=== PATIENT | female | born 1960 | race African-American/Black ===

== ENCOUNTER 2024-01-24 02:57 | Emergency (ER) | payer MEDICAID ==
[~2024-01-24] VITALS: Ht 167.6 cm; Wt 66.0 kg
[~2024-01-24 02:57] MED LIST: ALBU90AE INH; HYDR-4009 MT
[2024-01-24 02:59] VITALS: TEMP 98.5; O2SAT 99
[2024-01-24 07:59] LABS: BASOPHILS % 0.7 % (0.0-2.0); EOSINOPHILS % 2.2 % (0.0-5.0); HEMATOCRIT. 39.7 % (36.0-48.0); LYMPHOCYTES % 36.3 % (20.0-50.0); MEAN CORPUSCULAR HEMOGLOBIN 27.1 pg (28.0-32.0); MEAN CORPUSCULAR HGB CONC 32.8 g/dL (31.0-37.0); MEAN CORPUSCULAR VOLUME 82.6 fL (81.0-99.0); MEAN PLATELET VOLUME 8.1 fl (7.4-10.4); MONOCYTES % 6.5 % (2.0-8.0); NEUTROPHILS % 54.3 % (40.0-76.0); PLATELET 183 x1000/uL (130-400); RED BLOOD CELL COUNT 4.81 mill/uL (4.2-5.4); RED CELL DISTRIBUTION WIDTH 14.2 % (11.6-14.6); WHITE BLOOD COUNT 5.9 x1000/uL (4.5-11.0)
[2024-01-24 08:21] LABS: ALANINE AMINOTRANSFERASE 8 IU/L (10-49); ALBUMIN 3.9 g/dL (3.2-4.8); ASPARTATE AMINOTRANSFERASE 10 IU/L (<34); BILIRUBIN TOTAL 0.5 mg/dL (0.1-1.0); CALCIUM 8.7 mg/dL (8.7-10.4); CARBON DIOXIDE 29 mEq/L (21-32); CHLORIDE 102 mEq/L (98-107); CREATININE 0.6 mg/dL (0.6-1.0); GLUCOSE 260 mg/dL (70-105); POTASSIUM 3.7 mEq/L (3.5-5.1); PROTEIN TOTAL 6.6 g/dL (6.0-8.3); SODIUM 133 mEq/L (136-145); TROPONIN I HIGH SENSITIVITY 4 ng/L (3.0-34); UREA NITROGEN BLOOD 11 mg/dL (9-23)
[2024-01-24 11:57] VITALS: BP 131/72; PULSE 77; RESP 14
[2024-01-24] MEDS ORDERED: DEXT30SU17 MT (13:47)
[2024-01-24] MEDS ORDERED: IBUP-1523 MT (13:47)
[2024-01-24] MEDS ORDERED: TOPUD MT (13:47)
== END 2024-01-24 14:18 | disposition home or self-care (01) ==
LOC: ER 03:11
DX: B34.9 Viral infection, unspecified (principal); E11.9 Type 2 diabetes mellitus without complications; J45.909 Unspecified asthma, uncomplicated; Z20.822 Contact with and (suspected) exposure to COVID-19
CPT/HCPCS: 36415; 80053; 84484; 85025; 87426; 87804; 93005; 99284

== ENCOUNTER 2025-04-13 16:34 | Emergency (ER) | payer MEDICAID ==
[~2025-04-13] VITALS: Ht 167.6 cm; Wt 81.0 kg
[~2025-04-13 16:34] MED LIST changes: +GABA-1180 PO; +INSU100I28 SQ; +LISI20TA31 PO; +TOPUD MT
[2025-04-13 16:36] VITALS: O2SAT 98
[2025-04-13] MEDS: NA PHOS,M-B/NA PHOS,DI-BA ENEMA 118ML PR ONE (17:50)
[2025-04-13] MEDS ORDERED: NA P230E RC (18:45)
[2025-04-13 19:02] VITALS: BP 126/66; PULSE 70; RESP 14; TEMP 36.9; O2SAT 98
== END 2025-04-13 19:03 | disposition home or self-care (01) ==
LOC: ER 16:34
DX: K59.00 Constipation, unspecified (principal); E11.9 Type 2 diabetes mellitus without complications; J45.909 Unspecified asthma, uncomplicated; M19.90 Unspecified osteoarthritis, unspecified site; Z79.4 Long term (current) use of insulin; Z79.899 Other long term (current) drug therapy
CPT/HCPCS: 99284

== ENCOUNTER 2025-09-19 23:58 | Inpatient (IN) | payer MEDICAID ==
[~2025-09-19] VITALS: Ht 170.2 cm; Wt 82.1 kg
[~2025-09-19 23:58] MED LIST changes: +NA P230E RC
[2025-09-20] VITALS: O2SAT 99
[2025-09-20] MEDS: NITROGLYCERIN 0.4MG TABLET SL SL PRN (00:33)
[2025-09-20] MEDS: ASPIRIN 325MG TABLET PO ONE (00:33)
[2025-09-20 00:34] LABS: BASOPHILS % 1.0 % (0.0-2.0); EOSINOPHILS % 1.7 % (0.0-5.0); HEMATOCRIT. 39.5 % (36.0-48.0); HEMOGLOBIN. 12.8 g/dL (12.0-16.0); LYMPHOCYTES % 37.9 % (20.0-50.0); MEAN PLATELET VOLUME 8.1 fl (7.4-10.4); MONOCYTES % 5.9 % (2.0-8.0); NEUTROPHILS % 53.5 % (40.0-76.0); PLATELET 177 x1000/uL (130-400); RED BLOOD CELL COUNT 4.76 mill/uL (4.2-5.4); RED CELL DISTRIBUTION WIDTH 14.2 % (11.6-14.6)
[2025-09-20 00:49] LABS: CREATININE 0.8 mg/dL (0.6-1.0); ETHANOL BLOOD < 10 mg/dL (<10); INR 0.9; UREA NITROGEN BLOOD 11 mg/dL (9-23)
[2025-09-20 00:50] LABS: TROPONIN I HIGH SENSITIVITY 5 ng/L (3.0-34)
[2025-09-20 00:51] LABS: ASPARTATE AMINOTRANSFERASE 13 IU/L (<34); BILIRUBIN DIRECT < 0.1 mg/dL (<=3.0); BILIRUBIN TOTAL 0.3 mg/dL (0.1-1.0); PROTEIN TOTAL 6.2 g/dL (6.0-8.3)
[2025-09-20] MEDS: HYDRALAZINE 20MG/ML VIAL IV NR (01:44)
[2025-09-20 03:18] LABS: *AMPHETAMINES SCREEN URINE NEGATIVE (NEGATIVE); *BARBITURATES SCREEN URINE NEGATIVE (NEGATIVE); *BENZODIAZEPINES SCREEN URINE NEGATIVE (NEGATIVE); *COCAINE SCREEN URINE NEGATIVE (NEGATIVE); CANNABINOID URINE SCREEN NEGATIVE (NEGATIVE); ECSTASY MDMA SCREEN URINE NEGATIVE (NEGATIVE); METHADONE URINE SCREEN NEGATIVE (NEGATIVE); OPIATES URINE SCREEN PRESUMPTIVE POSITIVE (NEGATIVE); PHENCYCLIDINE URINE SCREEN NEGATIVE (NEGATIVE)
[2025-09-20 05:31] VITALS: BP 124/68; PULSE 66; RESP 20; TEMP 36.14
[2025-09-20] MEDS ORDERED: DEXTROSE 50% WATER 50ML SYRINGE IV PRN (07:45)
[2025-09-20 08:00] VITALS: BP 123/62; PULSE 67; RESP 20; TEMP 36.2; O2SAT 98
[2025-09-20] MEDS ORDERED: NALOXONE HCL 0.4MG/ML VIAL IV PRN (08:00)
[2025-09-20] MEDS: ASPIRIN 81MG TABLET PO SCH (09:19)
[2025-09-20] MEDS: METOPROLOL TARTRATE 50MG TABLET PO SCH (09:20)
[2025-09-20] MEDS: LISINOPRIL 20MG TABLET PO SCH (09:21)
[2025-09-20] MEDS: ENOXAPARIN 40MG/0.4ML SYR SUBCUT SCH (09:22)
[2025-09-20] MEDS: INSULIN GLARGINE 100 UNITS/ML SUBCUT SCH (09:32)
[2025-09-20] MEDS: HYDROCODONE/ACETAMINOPHEN 5/325MG TABLET PO PRN (10:13)
[2025-09-20 10:38] LABS: BASOPHILS % 0.5 % (0.0-2.0); EOSINOPHILS % 1.8 % (0.0-5.0); HEMATOCRIT. 41.5 % (36.0-48.0); HEMOGLOBIN. 13.6 g/dL (12.0-16.0); LYMPHOCYTES % 38.4 % (20.0-50.0); MEAN PLATELET VOLUME 8.5 fl (7.4-10.4); MONOCYTES % 5.4 % (2.0-8.0); NEUTROPHILS % 53.9 % (40.0-76.0); PLATELET 188 x1000/uL (130-400); RED BLOOD CELL COUNT 5.08 mill/uL (4.2-5.4); RED CELL DISTRIBUTION WIDTH 14.2 % (11.6-14.6)
[2025-09-20 11:01] LABS: CREATININE 0.7 mg/dL (0.6-1.0)
[2025-09-20 11:02] LABS: UREA NITROGEN BLOOD 6 mg/dL (9-23)
[2025-09-20 11:03] LABS: ASPARTATE AMINOTRANSFERASE 14 IU/L (<34)
[2025-09-20 11:04] LABS: BILIRUBIN TOTAL 0.4 mg/dL (0.1-1.0); PROTEIN TOTAL 6.5 g/dL (6.0-8.3)
[2025-09-20 12:00] VITALS: BP 142/70; PULSE 72; RESP 20; TEMP 36.2; O2SAT 98
[2025-09-20] MEDS: BLOOD SUGAR DIAGNOSTIC STRIP TEST SCH (12:10)
[2025-09-20] MEDS: INSULIN LISPRO 100 UNITS/ML SUBCUT SCH (13:36)
[2025-09-20 16:00] VITALS: BP 127/60; PULSE 80; RESP 20; TEMP 36.1; O2SAT 98
[2025-09-20] MEDS: GABAPENTIN 300MG CAPSULE PO SCH (18:45)
[2025-09-20] MEDS: ATORVASTATIN CALCIUM 40MG TABLET PO SCH (21:10)
[2025-09-20 21:56] VITALS: BP 102/54; PULSE 62; RESP 20; TEMP 36.3; O2SAT 95
[2025-09-21] VITALS: BP 100/60; PULSE 52; RESP 18; TEMP 36.1; O2SAT 99
[2025-09-21 04:00] VITALS: BP 110/62; PULSE 50; RESP 18; TEMP 35.9; O2SAT 98
[2025-09-21 08:00] VITALS: BP 91/43; PULSE 59; RESP 19; TEMP 36.2; O2SAT 98
[2025-09-21 12:00] VITALS: BP 115/64; PULSE 64; RESP 21; TEMP 36.1; O2SAT 98
[2025-09-21] MEDS ORDERED: METOPROLOL TARTRATE 5MG/5ML VIAL IV PRN (14:00)
[2025-09-21 16:00] VITALS: BP 116/55; PULSE 75; RESP 20; TEMP 36.8; O2SAT 98
[2025-09-21 20:00] VITALS: BP 167/64; PULSE 66; RESP 20; TEMP 36.7; O2SAT 98
[2025-09-21] MEDS: INFLUENZA VACCINE 05/PF 0.5 ML SYRINGE IM ONE (21:43)
[2025-09-21] MEDS: METOPROLOL TARTRATE 25MG TABLET PO SCH (21:44)
[2025-09-22] VITALS: BP 110/52; PULSE 57; RESP 20; TEMP 36.7; O2SAT 96
[2025-09-22 04:00] VITALS: BP 149/74; PULSE 60; RESP 20; TEMP 36.5; O2SAT 98
[2025-09-22 08:00] VITALS: BP 138/70; PULSE 57; RESP 20; TEMP 36.3; O2SAT 99
[2025-09-22 12:00] VITALS: BP 127/77; PULSE 91; RESP 20; TEMP 36.3; O2SAT 99
[2025-09-22 16:00] VITALS: BP 111/73; PULSE 81; RESP 20; TEMP 36.8
[2025-09-22 20:00] VITALS: BP 111/52; PULSE 77; RESP 20; TEMP 36.6; O2SAT 97
[2025-09-23] VITALS: BP 125/64; PULSE 76; RESP 20; TEMP 36.7; O2SAT 98
[2025-09-23 01:39] LABS: TROPONIN I HIGH SENSITIVITY 4 ng/L (3.0-34)
[2025-09-23 04:00] VITALS: BP 104/46; PULSE 69; RESP 18; TEMP 36.8; O2SAT 96
[2025-09-23 06:43] LABS: HEMATOCRIT. 37.4 % (36.0-48.0); HEMOGLOBIN. 12.3 g/dL (12.0-16.0); MEAN PLATELET VOLUME 8.6 fl (7.4-10.4); PLATELET 154 x1000/uL (130-400); RED BLOOD CELL COUNT 4.55 mill/uL (4.2-5.4); RED CELL DISTRIBUTION WIDTH 14.2 % (11.6-14.6)
[2025-09-23 06:50] LABS: CREATININE 0.7 mg/dL (0.6-1.0); UREA NITROGEN BLOOD 13 mg/dL (9-23)
[2025-09-23 08:00] VITALS: BP 116/50; PULSE 76; RESP 18; TEMP 37.6; O2SAT 97
[2025-09-23 12:00] VITALS: BP 108/46; PULSE 70; RESP 18; TEMP 37.1; O2SAT 99
[2025-09-23 16:00] VITALS: BP 98/45; PULSE 62; RESP 18; TEMP 36.5; O2SAT 98
[2025-09-23 20:08] LABS: LYMPHOCYTES % MANUAL 13.0 % (20.0-60.0); MONOCYTES % MANUAL 8.0 % (2.0-8.0); NEUTROPHILS % MANUAL 79.0 % (45.0-75.0); PLATELET ESTIMATE NORMAL
[2025-09-23] MEDS ORDERED: INSULIN GLARGINE 100 UNITS/ML SUBCUT SCH (22:00)
== END 2025-09-23 18:49 | disposition left against medical advice (07) | DRG 198 ==
LOC: ER 09-20 00:28 → EDBEDREQ 09-20 02:35 → EDBEDREQTM 09-20 02:35 → 8WST 09-20 03:31
PROVIDERS: ADMIT Internal Medicine; ATTEND Internal Medicine
DX: I20.0 Unstable angina (principal); I16.0 Hypertensive urgency; E11.65 Type 2 diabetes mellitus with hyperglycemia; I10 Essential (primary) hypertension; J45.909 Unspecified asthma, uncomplicated; F17.210 Nicotine dependence, cigarettes, uncomplicated; Z53.29 Procedure and treatment not carried out because of patient's decision for other reasons; Z71.6 Tobacco abuse counseling; Z79.899 Other long term (current) drug therapy; Z79.82 Long term (current) use of aspirin
CPT/HCPCS: 36415; 71045; 80048; 80053; 80076; 80305; 80320; 82962; 83036; 83880; 84484; 85025; 90686; 93005; 93306; 99285; J0360; J1650; J1815; G0480